=== PATIENT | male | born 1940 | race Two or more races ===

== ENCOUNTER 2016-05-25 21:35 | Emergency (ER) | payer OTHER ==
[~2016-05-25] VITALS: Ht 172.7 cm; Wt 99.8 kg
[2016-05-25 21:48] VITALS: BP 148/81
--- NOTE | 2016-05-25 23:23 | Emergency Room Report ---
History of Present Illness General Chief Complaint: Generalized Weakness Source: Patient, EMS Present Illness HPI This is a 75-year-old male who presents with chief complaint of weakness. He had a recent stroke a few days ago. He was at [facility]. He sat out AMA and which is home for a couple days. He called landlord who checked on him and subsequently called 911. Patient initially complaining of right leg pain. He does have right-sided weakness secondary to stroke. He has been using a walker. Denies any new trauma. No slurred speech. No new focal deficit. Allergies: Coded Allergies: No Known Allergies (Unverified , 05/25/16) Patient History Past Medical History: see triage record, old chart reviewed, CVA/TIA Past Surgical History: other Pertinent Family History: none Social History: Denies: smoking Immunizations: other Reviewed Nursing Documentation: PMH: Agreed, PSxH: Agreed Nursing Documentation-PMH Past Medical History: No History, Except For Hx Hypertension: Yes Hx Cerebrovascular Accident: Yes - right sided deficit Review of Systems Constitutional: Reports: weakness Eye: Denies: blurred vision, eye pain ENT: Denies: ear pain, nose congestion, throat swelling Respiratory: Denies: cough, shortness of breath Cardiovascular: Denies: chest pain, palpitations Gastrointestinal: Denies: abdominal pain, diarrhea, nausea, vomiting Musculoskeletal: Denies: back pain, joint pain Skin: Denies: rash Neurological: Denies: headache, numbness Endocrine: Denies: increased thirst, increased urine Hematologic/Lymphatic: Denies: easy bruising All Other Systems: negative except mentioned in HPI Physical Exam Vital Signs Date Time Temp Pulse Resp B/P Pulse Ox O2 Delivery O2 Flow Rate FiO2 05/25/16 21:38 98.6 60 16 148/81 99 Room Air vitals unremarkable Sp02 EP Interpretation: reviewed, normal General Appearance: well appearing, no apparent distress, alert Head: normocephalic, atraumatic Eyes: bilateral eye EOMI, bilateral eye PERRL ENT: hearing grossly normal, normal pharynx Neck: full range of motion, supple, no meningismus Respiratory: chest non-tender, lungs clear, normal breath sounds Cardiovascular #1: regular rate, rhythm, no murmur Gastrointestinal: normal bowel sounds, non tender, no mass, no organomegaly, no bruit, non-distended Musculoskeletal: back normal, normal range of motion Neurologic: alert, oriented x3, motor weakness - Right-sided weakness Psychiatric: mood/affect normal Skin: warm/dry Medical Decision Making Diagnostic Impression: Primary Impression: CVA, old, hemiparesis ER Course Patient with CVA with resultant right-sided weakness. I order labs and urinalysis. Patient said that he felt better and doesn't want to stay. He is competent to make that decision. He said that he has his walker at home. He said that his son come and visit him. I really feel that this patient should at least go to a rehabilitation center for physical therapy. He adamantly refused. Again he is competent to make that decision. Was sent home via ambulance. Last Vital Signs Date Time Temp Pulse Resp B/P Pulse Ox O2 Delivery O2 Flow Rate FiO2 05/25/16 21:38 98.6 60 16 148/81 99 Room Air Status: improved Disposition: HOME, SELF-CARE Condition: Stable Referrals: [facility],REFERRING (PCP) Additional Instructions: Followup with your DrLalo in 2-3 days. Return if symptom worsen. You may benefit from physical therapy and rehabilitation for increase function of your upper and lower extremities. MICHELLE DUKES M.D. May 25, 2016 23:23
[2016-05-26 03:05] VITALS: BP 135/87
== END 2016-05-26 03:08 | disposition home or self-care (01) ==
LOC: EDBD 21:35 → EMR 21:59 → CANBEDREQ 05-26 01:23 → EMR 05-26 03:08
DX: G81.91 Hemiplegia, unspecified affecting right dominant side (principal); M79.604 Pain in right leg; I10 Essential (primary) hypertension
CPT/HCPCS: 99283